=== PATIENT | male | born 1955 | race Caucasian/White ===

== ENCOUNTER 2017-03-07 09:57 | Outpatient (CLI) | payer OTHER ==
[2017-03-07 10:15] LABS: BASOPHILS # (AUTO) 0.1 10^3/uL (0.0-0.1); BASOPHILS % (AUTO) 0.5 %; EOSINOPHILS # (AUTO) 0.8 10^3/uL (0.0-0.7); EOSINOPHILS % (AUTO) 7.5 %; HCT - HEMATOCRIT 44.4 % (42.0-52.0); HGB - HEMOGLOBIN 14.9 g/dL (14.0-18.0); LYMPHOCYTES # (AUTO) 2.7 10^3/uL (1.5-3.5); LYMPHOCYTES % (AUTO) 25.8 %; MEAN CORPUSCULAR HEMOGLOBIN 30.3 pg (27.0-31.0); MEAN CORPUSCULAR HGB CONC 33.7 g/dL (32.0-36.0); MEAN PLATELET VOLUME 8.5 fL (7.4-11.4); MONOCYTES # (AUTO) 0.6 10^3/uL (0.0-1.0); MONOCYTES % (AUTO) 5.5 %; NEUTROPHILS # (AUTO) 6.3 10^3/uL (1.5-6.6); NEUTROPHILS % (AUTO) 60.7 %; RED BLOOD COUNT 4.93 10^6/uL (4.70-6.10); RED CELL DISTRIBUTION WIDTH 14.8 % (12.0-15.0); UNCORRECTED WHITE BLOOD COUNT 10.4 x10^3/uL; WHITE BLOOD COUNT 10.4 x10^3/uL (4.8-10.8)
== END 2017-03-07 09:58 | disposition home or self-care (01) ==
LOC: LAB 09:57
PROVIDERS: ATTEND Family Medicine
DX: M79.661 Pain in right lower leg (principal)
CPT/HCPCS: 36415; 85025; 85379

== ENCOUNTER 2017-03-11 19:12 | Outpatient (CLI) | payer OTHER ==
--- NOTE | 2017-03-12 09:05 | Ultrasound Report ---
EXAM: RIGHT LOWER EXTREMITY VENOUS ULTRASOUND EXAM DATE: 03/11/2017 08:29 PM. CLINICAL HISTORY: Duplex study arterial and venous extremities, unilateral. Right calf pain. COMPARISON: None. TECHNIQUE: Real-time sonographic vascular imaging was performed by the slot supervisor through the lower extremity utilizing both color-flow and Doppler spectral analysis. Multiple member service representative static aung ges were saved for review. FINDINGS: Common Femoral Vein (CFV): Normal. CFV-GSV Junction: Normal. Profunda Femoral Vein (PFV): Normal. Femoral Vein (FV) Prox: Normal. Femoral Vein (FV) Mid: Normal. Femoral Vein (FV) Dist: Normal. Popliteal Vein: Normal. Posterior Tibial Veins: Normal. Peroneal Veins: Normal. Contralateral Left CFV: Normal. Other: None. IMPRESSION: No evidence for deep venous thrombosis. [facility] Referring Provider Line: [phone] SITE ID: [id number]
--- NOTE | 2017-03-12 18:22 | Ultrasound Report ---
EXAM: RIGHT LOWER EXTREMITY ARTERIAL DOPPLER ULTRASOUND EXAM DATE: 03/11/2017 10:22 PM. CLINICAL HISTORY: Claudication type symptoms. Recent long flight. Calf pain. COMPARISON: None. TECHNIQUE: Real-time sonographic vascular imaging was performed by the theology teacher, utilizing color-f low, Doppler flow, and spectral analysis. Multiple outbound sales representative static images were saved for review . FINDINGS: Patchy areas of atheromatous plaques are noted in the arterial system of the right lower ex tremity. Biphasic or triphasic waveforms are noted. Specifically, no hemodynamically significant sten oses are noted. Spectral waveform analysis is as follows: Right Leg: VISUAL MERCHANDISER: PSV 99.7 cm/sec. Triphasic waveform. PSFA: PSV 75.4 cm/sec. Triphasic waveform. MSFA: PSV 93.4 cm/sec. Triphasic waveform. DSFA: PSV 101.3 cm/sec. Triphasic waveform. PFA: PSV 67.2 cm/sec. Biphasic waveform. POP: PSV 55 cm/sec. Triphasic waveform. VALENTE: PSV 34.7 cm/sec. Triphasic waveform. SUPERVISOR ASSEMBLY ROOM: PSV 90.1 cm/sec. Biphasic waveform. PER: PSV 37.6 cm/sec. Biphasic waveform. DPA: PSV 76.6 cm/sec. Biphasic waveform. IMPRESSION: 1. No hemodynamically significant stenoses. 2. See separate lower extremity venous ultrasound report. [facility] Referring Provider Line: [phone] SITE ID: [id number]
== END 2017-03-11 19:13 | disposition home or self-care (01) ==
LOC: DI 19:12
PROVIDERS: ATTEND Family Medicine
DX: M79.661 Pain in right lower leg (principal)

== ENCOUNTER 2017-07-22 08:00 | Outpatient (CLI) | payer OTHER | END 2017-07-22 08:01 | disposition home or self-care (01) | LOC: LAB.R 08:00 | PROVIDERS: ATTEND Physician Assistant Medical | DX: L03.211 Cellulitis of face (principal) | CPT/HCPCS: 87070; 87205 ==

== ENCOUNTER 2017-07-31 19:34 | Emergency (ER) | payer OTHER ==
--- NOTE | 2017-07-31 21:09 | ED Physician Documentation ---
PD HPI HEAD INJURY - Stated complaint Stated Complaint: HEAD LAC - Chief complaint Chief Complaint: Trauma Hd/Nk - History obtained from History obtained from: Patient - History of Present Illness Mechanism of head injury: Fell (he stumbled and fell backward, struck back of head. No LOC.) Timing - onset: Today Location of injury: Back Associated symptoms: No: LOC, AMS, Nausea / vomiting Contributing factors: No: Anticoagulated, Intoxicated Similar symptoms before: Has not had sx before Recently seen: Not recently seen Review of Systems Eyes: denies: Loss of vision, Decreased vision, Photophobia Nose: denies: Rhinorrhea / runny nose, Congestion Throat: denies: Sore throat Cardiac: denies: Chest pain / pressure GI: denies: Abdominal Pain Skin: reports: Laceration (s) (occiput) Musculoskeletal: denies: Neck pain, Back pain Neurologic: denies: Focal weakness, Numbness PD PAST MEDICAL HISTORY - Past Medical History Cardiovascular: Hypertension, High cholesterol, Angina Respiratory: None Endocrine/Autoimmune: Type 2 diabetes GI: Other : Benign prostate hypertrophy HEENT: Other Psych: Depression Musculoskeletal: Gout Derm: None - Past Surgical History Past Surgical History: Yes General: Colonoscopy Cardiovascular: Cardiac catheterization, Other HEENT: Other - Present Medications Home Medications: Ambulatory Orders Medication Instructions Recorded Confirmed Allopurinol 300 mg PO DAILY 05/28/14 11/14/15 Aspirin [Aspir 81] 81 mg PO DAILY 05/28/14 11/11/15 Atenolol 100 mg PO DAILY 05/28/14 11/14/15 Cholecalciferol (Vitamin D3) 5,000 unit PO DAILY 05/28/14 11/14/15 [Vitamin D3] Gummy Multivitamin 1 mg PO DAILY 05/28/14 11/11/15 Hydrochlorothiazide 25 mg PO DAILY 05/28/14 11/11/15 Inulin [Fiber Gummies] 2.5 gm PO DAILY 05/28/14 11/11/15 Losartan Potassium 50 mg PO DAILY 05/28/14 11/11/15 Marine D3 1 mg PO BID 05/28/14 11/11/15 Triamcinolone 0.1% Cream [Kenalog 15 gm TOP QID PRN 05/28/14 11/11/15 0.1% Cream] metFORMIN [Glucophage] 500 mg PO BIDWM 09/03/14 11/11/15 Fluoxetine HCl 20 mg PO DAILY 11/11/15 11/11/15 Tamsulosin [Flomax] 0.4 mg PO DAILY 11/14/15 11/14/15 - Allergies Allergies/Adverse Reactions: Allergies Allergy/AdvReac Type Severity Reaction Status Date / Time No Known Drug Allergies Allergy Verified 05/28/14 13:11 - Social History Does the pt smoke?: No Smoking Status: Never smoker Does the pt drink ETOH?: No Does the pt have substance abuse?: No PD ED PE NORMAL - Vitals Vital signs reviewed: Yes - General General: Alert and oriented X 3, No acute distress, Well developed/nourished - HEENT HEENT: Other (occiput with 2 cm lac with mild bleeding, to fatty tissue. Not deep but edges slightly apart. ) - Neck Neck: Supple, no meningeal sign, No bony TTP, No adenopathy - Derm Derm: Normal color, Warm and dry - Neuro Neuro: Alert and oriented X 3, financial cost analyst 2-12 intact, No motor deficit, No sensory deficit, Normal speech Eye Opening: Spontaneous Motor: Obeys Commands Verbal: Oriented GCS Score: 15 - Psych Psych: Normal mood Results - Vitals Vitals: Vital Signs - 24 hr 07/31/17 07/31/17 19:35 21:50 Temperature 36.0 C L Heart Rate 66 61 Respiratory 18 18 Rate Blood Pressure 123/76 122/81 H O2 Saturation 96 95 Oxygen O2 Source Room air Procedures - Laceration (location) occipital scalp Length in cm: 2 Wound type: Linear, Into subcut fat, Clean Anesthesia: Lidocaine 1% with epi Skin layer closure: Simpson Other: Patient tolerated well, No complications, Tetanus UTD Complexity: Simple PD MEDICAL DECISION MAKING - ED course Complexity details: considered differential, d/w patient Departure - Departure Disposition: 01 Home, Self Care Clinical Impression: Fall from slip, trip, or stumble Qualifiers: Encounter type: initial encounter Qualified Code(s): W01.0XXA - Fall on same level from slipping, tripping and stumbling without subsequent striking against object, initial encounter Occipital scalp laceration Qualifiers: Encounter type: initial encounter Qualified Code(s): S01.01XA - Laceration without foreign body of scalp, initial encounter Condition: Stable Record reviewed to determine appropriate education?: Yes Instructions: ED Laceration Scalp Stitch Or Stap Comments: Tylenol or ibuprofen if needed for pains. It is okay to wash and shower. Clean off the wound twice a day with soap and water, or peroxide and water. Apply some antibiotic ointment to it to keep it moist. Also to watch for signs of infection such as purulence, redness or increasing pain. Return to your primary care or the ER at the specified time for staple removal. Staple removal in 7- 10 days. It can be at your scheduled regular appointment coming up next week per Discharge Date/Time: 07/31/17 21:51
[2017-07-31 21:51] VITALS: BP 122/81
== END 2017-07-31 21:51 | disposition home or self-care (01) ==
LOC: ED 19:34
DX: S01.01XA Laceration without foreign body of scalp, initial encounter (principal); W01.190A Fall on same level from slipping, tripping and stumbling with subsequent striking against furniture, initial encounter; I10 Essential (primary) hypertension; E78.00 Pure hypercholesterolemia, unspecified; E11.9 Type 2 diabetes mellitus without complications; Z79.82 Long term (current) use of aspirin
CPT/HCPCS: 12001; 99283

== ENCOUNTER 2017-08-21 08:00 | Outpatient (CLI) | payer OTHER | END 2017-08-21 08:01 | disposition home or self-care (01) | LOC: LAB.R 08:00 | PROVIDERS: ATTEND Family Medicine | DX: Z22.322 Carrier or suspected carrier of Methicillin resistant Staphylococcus aureus (principal) | CPT/HCPCS: 87640 ==

== ENCOUNTER 2017-12-09 08:00 | Outpatient (CLI) | payer OTHER ==
[2017-12-09 13:17] LABS: ALBUMIN 4.4 g/dL (3.2-5.5); ALBUMIN/GLOBULIN RATIO 1.4 (1.0-2.2); ALKALINE PHOSPHATASE 53 IU/L (42-121); ALT ALANINE AMINOTRANSFERASE 45 IU/L (10-60); AST ASPARTATE AMINOTRANSFERASE 36 IU/L (10-42); BILIRUBIN,TOTAL 0.9 mg/dL (0.2-1.0); BUN - BLOOD UREA NITROGEN 35 mg/dL (6-20); CALCIUM 9.3 mg/dL (8.5-10.3); CARBON DIOXIDE - CO2 27 mmol/L (21-32); CHLORIDE 100 mmol/L (101-111); CHOL/HDL RATIO 7.4 (<5.0); CHOLESTEROL 229 mg/dL; GFR - MDRD 76 (>89); GLUCOSE 96 mg/dL (70-100); HDL CHOLESTEROL 31 mg/dL; LDL CHOLESTEROL,CALCULATED 156 mg/dL; SODIUM 137 mmol/L (135-145); TOTAL PROTEIN 7.5 g/dL (6.7-8.2); VLDL CHOLESTEROL 42 mg/dL
[2017-12-09 13:23] LABS: HB2 TOTAL 17.3 g/dL; HEMOGLOBIN A1C 0.73 g/dL
[2017-12-09 13:25] LABS: BASOPHILS % (AUTO) 0.6 %; EOSINOPHILS # (AUTO) 0.4 10^3/uL (0.0-0.7); EOSINOPHILS % (AUTO) 5.1 %; HGB - HEMOGLOBIN 15.5 g/dL (14.0-18.0); LYMPHOCYTES # (AUTO) 2.6 10^3/uL (1.5-3.5); LYMPHOCYTES % (AUTO) 32.7 %; MEAN CORPUSCULAR HEMOGLOBIN 30.7 pg (27.0-31.0); MEAN CORPUSCULAR HGB CONC 34.1 g/dL (32.0-36.0); MEAN CORPUSCULAR VOLUME 90.1 fL (80.0-94.0); MEAN PLATELET VOLUME 9.4 fL (7.4-11.4); MONOCYTES # (AUTO) 0.5 10^3/uL (0.0-1.0); MONOCYTES % (AUTO) 5.9 %; NEUTROPHILS # (AUTO) 4.4 10^3/uL (1.5-6.6); NEUTROPHILS % (AUTO) 55.7 %; PLT - PLATELET COUNT 193 10^3/uL (130-450); RED BLOOD COUNT 5.05 10^6/uL (4.70-6.10); RED CELL DISTRIBUTION WIDTH 14.2 % (12.0-15.0)
== END 2017-12-09 23:59 ==
LOC: LAB.WCP 08:00
PROVIDERS: ATTEND Family Medicine
DX: E11.9 Type 2 diabetes mellitus without complications (principal); N52.9 Male erectile dysfunction, unspecified
CPT/HCPCS: 36415; 80053; 80061; 83036; 83721; 84403; 85025

== ENCOUNTER 2018-09-30 15:32 | Outpatient (CLI) | payer OTHER ==
[2018-09-30] MEDS ORDERED: IOVERSOL 320 50 ML VIAL ONE (15:40)
[2018-09-30] MEDS ORDERED: IOVERSOL 320 100 ML VIAL IVP ONE ×2 (15:41→17:15)
[2018-09-30 16:22] LABS: BASOPHILS # (AUTO) 0.1 10^3/uL (0.0-0.1); BASOPHILS % (AUTO) 0.8 %; EOSINOPHILS # (AUTO) 0.4 10^3/uL (0.0-0.7); EOSINOPHILS % (AUTO) 3.4 %; HGB - HEMOGLOBIN 16.5 g/dL (14.0-18.0); LYMPHOCYTES # (AUTO) 3.2 10^3/uL (1.5-3.5); LYMPHOCYTES % (AUTO) 24.3 %; MEAN CORPUSCULAR HEMOGLOBIN 30.9 pg (27.0-31.0); MEAN CORPUSCULAR HGB CONC 33.8 g/dL (32.0-36.0); MEAN CORPUSCULAR VOLUME 91.5 fL (80.0-94.0); MEAN PLATELET VOLUME 8.6 fL (7.4-11.4); MONOCYTES # (AUTO) 0.9 10^3/uL (0.0-1.0); MONOCYTES % (AUTO) 6.8 %; NEUTROPHILS # (AUTO) 8.4 10^3/uL (1.5-6.6); NEUTROPHILS % (AUTO) 64.7 %; PLT - PLATELET COUNT 229 10^3/uL (130-450); RED BLOOD COUNT 5.33 10^6/uL (4.70-6.10); RED CELL DISTRIBUTION WIDTH 14.2 % (12.0-15.0)
[2018-09-30 16:35] LABS: ALBUMIN 4.5 g/dL (3.2-5.5); ALBUMIN/GLOBULIN RATIO 1.2 (1.0-2.2); BILIRUBIN,TOTAL 1.4 mg/dL (0.2-1.0); CALCIUM 9.6 mg/dL (8.5-10.3); CREATININE 1.1 mg/dL (0.6-1.2); TOTAL PROTEIN 8.4 g/dL (6.7-8.2)
[2018-09-30 16:41] LABS: HB2 TOTAL 18.7 g/dL; HEMOGLOBIN A1C 0.86 g/dL; HEMOGLOBIN A1C % 6.4 % (4.6-6.2)
[2018-09-30] MEDS ORDERED: IOVERSOL 320 50 ML VIAL PO ONE (17:15)
--- NOTE | 2018-09-30 19:25 | CT Report ---
Reason: ABDOMINAL PAIN, LLQ Procedure Date: 09/30/2018 Accession Number: [id number] / [id number] Procedure: CT - Abdomen/Pelvis W/ CPT Code: FULL RESULT: EXAM: CT ABDOMEN AND PELVIS EXAM DATE: 09/30/2018 05:13 PM. CLINICAL HISTORY: ABDOMINAL PAIN, LLQ. Left lower quadrant pain. COMPARISONS: ABDOMEN/PELVIS W/ 09/30/2018 5:02 PM ABDOMEN/PELVIS W/O 06/29/2015 8:37 AM. TECHNIQUE: Routine helical CT imaging was performed through the abdomen and pelvis. IV contrast: OPTI 320 90 ML. Enteric contrast: Yes. Reconstructions: Coronal and sagittal. In accordance with CT protocol optimization, one or more of the following dose reduction techniques were utilized for this exam: automated exposure control, adjustment of mA and/or KV based on patient size, or use of iterative reconstructive technique. FINDINGS: Lung bases: Minimal probable chronic consolidation of the lingula, unchanged. Liver: Fatty liver. Gallbladder: Small gallstones or sludge are possible. Bile ducts: Unremarkable. Pancreas: Unremarkable. Spleen: Low density mass seen at the spleen measuring 1.8 cm, appears unchanged from the prior, Hounsfield unit suggestive for a solid mass, could represent a splenic hemangioma, not fully characterized. Adrenals: Unremarkable. Kidneys: Large left lower pole renal calculus measuring 1.7 cm, increased. Small nonspecific low densities left kidney. A few small left lower pole renal cysts. Right lower pole renal cyst measuring 1.6 cm. A few right renal calculi, largest at the mid pole 4 mm. Small right upper pole renal cyst. A few other small probable renal cysts. No hydronephrosis. No ureteral calculi. Bowel: Small hiatal hernia. Moderate acute diverticulitis with an inflamed proximal sigmoid diverticulum and moderate adjacent stranding. Mild descending colon and proximal sigmoid colon diverticulosis. No evidence for perforation or abscess. Normal appendix. No free fluid or free air. Small fat-containing umbilical hernia again noted. Pelvis: The bladder and remaining pelvic organs appear unremarkable. Vasculature: No acute findings. Infrarenal abdominal aorta measures 2.5 cm. Bones: No acute findings. IMPRESSION: 1. Moderate acute diverticulitis with an inflamed proximal sigmoid diverticulum and moderate adjacent stranding. Mild descending colon and proximal sigmoid colon diverticulosis. No evidence for perforation or abscess. 2. Bilateral renal calculi, nonobstructing. See above. 3. Small fat-containing umbilical hernia again noted. 4. Low density mass seen at the spleen measuring 1.8 cm, appears unchanged from the prior, Hounsfield unit suggestive for a solid mass, could represent a splenic hemangioma, not fully characterized. 5. Small gallstones or sludge are possible. 6. Fatty liver. [facility] ADDENDUM: 09/30/18 20:29 Dr. Lantigua was informed of these findings on 09/30/2018 at 20:28 hrs.
== END 2018-09-30 15:33 | disposition home or self-care (01) ==
LOC: DI 15:32
PROVIDERS: ATTEND Family Medicine
DX: K57.32 Diverticulitis of large intestine without perforation or abscess without bleeding (principal); K57.30 Diverticulosis of large intestine without perforation or abscess without bleeding; N20.0 Calculus of kidney; K42.9 Umbilical hernia without obstruction or gangrene; R16.1 Splenomegaly, not elsewhere classified; K76.0 Fatty (change of) liver, not elsewhere classified; R10.32 Left lower quadrant pain; E11.9 Type 2 diabetes mellitus without complications
CPT/HCPCS: 36415; 74177; 80053; 83036; 85025; Q9967

== ENCOUNTER 2018-11-27 06:47 | Day surgery (SDC) | payer OTHER ==
[~2018-11-27 06:47] MED LIST: CYCLOPENTOLATE 1% OPHTH DROPS 2 ML ONE; KETOROLAC 0.45% OPHTH DROPS ONE; PHENYLEPHRINE 2.5% OPHTH 2 ML DROPS ONE; PROPARACAINE 0.5% OPHTH DROPS 15 ML ONE
[2018-11-27] MEDS ORDERED: BRIMONIDINE 0.2% OPHTH DROPS 5 ML ONE (06:59)
[2018-11-27] MEDS ORDERED: TIMOLOL 0.5% OPHTH DROPS ONE (06:59)
[2018-11-27] MEDS ORDERED: LACTATED RINGERS 500 ML IV ONE (06:59)
[2018-11-27] MEDS ORDERED: BSS/LIDOCAINE/EPINEPHRINE 1 ML SYRINGE ONE (06:59)
[2018-11-27] MEDS ORDERED: PROPARACAINE 0.5% OPHTH DROPS 15 ML LEFTEYE ONE ×2 (07:00→08:21)
[2018-11-27] MEDS ORDERED: VANCOMYCIN OPHTHALMI 8MG/0.8ML 8 MG/0.8 ML SYRINGE IO ONE (07:00)
[2018-11-27] MEDS ORDERED: CYCLOPENTOLATE 1% OPHTH DROPS 2 ML LEFTEYE ONE (07:00)
[2018-11-27] MEDS ORDERED: PHENYLEPHRINE 2.5% OPHTH 2 ML DROPS LEFTEYE ONE (07:00)
[2018-11-27] MEDS ORDERED: KETOROLAC 0.45% OPHTH DROPS LEFTEYE ONE (07:00)
--- NOTE | 2018-11-27 07:42 | ANESTHESIA ---
Pre-Anesthesia VS, & Labs - Diagnosis Left senile combined cataract - Procedure Left laser assisted phaco with IOL implant Vital Signs: Temp Pulse Resp BP Pulse Ox 36.3 C L 60 16 137/99 H 96 11/27/18 07:01 11/27/18 07:01 11/27/18 07:01 11/27/18 07:01 11/27/18 07:01 Height 5 ft 2 in Body Mass Index 34.7 - NPO >8 hours - Lab Results Current Lab Results: Laboratory Tests 11/27/18 07:10: POC Whole Bld Glucose 103 H Home Medications and Allergies Home Medications: Ambulatory Orders Ascorbic Acid [Vitamin C] 500 mg PO DAILY 11/27/18 Inulin/Cholecalciferol (D3) [Fiber Gummies-Vitamin D3] 1 each PO DAILY 11/27/18 Krill/Om-3/Dha/Epa/Phospho/Ast [Krill Oil 500 mg Softgel] 1 each PO DAILY 11/27/18 Allopurinol 300 mg PO DAILY 05/28/14 Aspirin [Aspir 81] 81 mg PO DAILY 05/28/14 Atenolol 100 mg PO DAILY 05/28/14 Cholecalciferol (Vitamin D3) [Vitamin D3] 5,000 unit PO DAILY 05/28/14 Gummy Multivitamin 1 mg PO DAILY 05/28/14 Hydrochlorothiazide 25 mg PO DAILY 05/28/14 Losartan Potassium 50 mg PO DAILY 05/28/14 Triamcinolone 0.1% Cream [Kenalog 0.1% Cream] 15 gm TOP QID PRN 05/28/14 metFORMIN [Glucophage] 500 mg PO BIDWM 09/03/14 Ascorbic Acid [Vitamin C] 500 mg PO DAILY 11/27/18 Inulin/Cholecalciferol (D3) [Fiber Gummies-Vitamin D3] 1 each PO DAILY 11/27/18 Krill/Om-3/Dha/Epa/Phospho/Ast [Krill Oil 500 mg Softgel] 1 each PO DAILY 11/27/18 Allergies/Adverse Reactions: Allergies Allergy/AdvReac Type Severity Reaction Status Date / Time oxycodone AdvReac Rash Verified 11/27/18 07:00 Anes History & Medical History - Anesthetic History Anesthesia Complications: reports: No previous complications Family history of Anesthesia Complications: Denies Family history of Malignant Hyperthermia: Denies - Medical History Cardiovascular: reports: Hypertension Pulmonary: reports: None Gastrointestinal: reports: Colon polyps, Diverticulitis Urinary: reports: Benign prostate hypertrophy, Kidney stones Neuro: reports: None Musculoskeletal: reports: None Endocrine/Autoimmune: reports: Type 2 diabetes Skin: reports: Psoriasis Smoking Status: Never smoker Psychosocial: reports: No issues indicated - Surgical History General: Colonoscopy Eyes Ears Nose Throat (EENT): Other Cardiothoracic: Cardiac catheterization, Other Urologic: Ureterolithotomy (stones) Exam General: Alert Dental: WNL Mouth Opening: Greater than 4 Fingerbreadths Neck Mobility: Normal Mallampati classification: II Thyromental Distance: greater than 6 cm Respiratory: Lungs clear Cardiovascular: Regular rate Neurological: Normal speech Mental/Cognitive Status: Alert/Oriented X3 Cognitive Status: Within normal limits Plan Anesthesia Type: MAC Consent for Procedure(s) Verified and Reviewed: Yes Code Status: Attempt Resuscitation ASA classification: 3-Severe systemic disease Is this case an emergency?: No
[2018-11-27] MEDS ORDERED: BRIMONIDINE 0.2% OPHTH DROPS 5 ML OPTH ONE ×2 (07:43→08:21)
[2018-11-27] MEDS ORDERED: CHONDR SULF/HYALURONATE SYRINGE IO ONE ×3 (07:44→08:21)
[2018-11-27] MEDS ORDERED: EPINEPHrine 1 MG/ML AMP IVP ONE ×2 (07:44→08:21)
[2018-11-27] MEDS ORDERED: TIMOLOL 0.5% OPHTH DROPS OPTH ONE ×2 (07:44→08:21)
[2018-11-27] MEDS ORDERED: BSS/LIDOCAINE/EPINEPHRINE 1 ML SYRINGE IO ONE ×2 (07:45→08:21)
[2018-11-27] MEDS: TRIAMCIN/MOXIFLOX OPHTHALMIC 0.6 ML VIAL IO ONE ×2 (07:47→08:21)
[2018-11-27] MEDS ORDERED: MIDAZOLAM 2 MG/2 ML VIAL IVP ONE (08:10)
[2018-11-27 09:04] VITALS: BP 148/75
--- NOTE | 2018-11-27 10:00 | OPERATIVE REPORT ---
DATE OF SERVICE: 11/27/2018 Physician: Edward Regan MD PREOPERATIVE DIAGNOSIS: Visually significant cataract, left eye. This was his first cataract surgery. POSTOPERATIVE DIAGNOSIS: Visually significant cataract, left eye. This was his first cataract surgery. NAME OF PROCEDURE: Phacoemulsification with posterior chamber intraocular lens implant, left eye, with laser assist. SURGEON: Edward Regan MD ANESTHESIA: Monitored anesthesia care. COMPLICATIONS: None. OPERATIVE INDICATIONS: This is a 63-year-old man with progressive vision loss in the left eye due to 1-2+ nuclear sclerotic, 2-3+ cortical, and 2+ posterior subcapsular cataract. Best corrected visual acuity was 20/40 with glare to 20/200 in the left eye. Indications for surgery were overall decrease in vision, difficulty seeing words on a computer screen, difficulty reading, difficulty seeing words closed caption or game scores on TV, difficulty seeing street signs and difficulty with glare or bright lights in any situation. He was consented at length concerning risks and benefits of cataract surgery, after which he expressed a desire to proceed with surgery. OPERATIVE PROCEDURE: The patient was taken to OR #3 and placed under monitored anesthesia care. Surgical timeout was conducted confirming correct patient, correct procedure, and correct surgical site. He was placed on the LenSx laser and his eye docked to laser interface. It was noted during this time that he has a very thin crystalline lens. The laser performed the capsulotomy, lens softening, phaco wounds, and arcuate keratotomy incisions. He was then moved to the operating microscope, given topical anesthesia, and prepped and draped in the usual sterile fashion. The eye was entered at the 6 and 3 o'clock positions. Intracameral Shugarcaine was injected into the anterior chamber, followed by Viscoat. A capsulorrhexis flap created by the LenSx laser was removed from the anterior chamber. The nucleus was hydrodissected and phacoemulsified. However, at the end of the phacoemulsification, there was noted to be a rent nasally of the posterior capsule. However, residual cortex was all under the wound and cortex was evacuated using automated infusion and aspiration. Provisc was injected into the sulcus and a 21.0 diopter, 3-piece, intraocular lens was injected into the sulcus and put into optic capture; however, the optic would not remain in optic capture, so it was just left. It was very well centered and left strictly in the sulcus. I and A was used to evacuate the viscoelastic materials and the eye was inflated to physiologic pressure using balanced salt solution and found to be watertight. Approximately 0.1 mL of a mixture of triamcinolone, moxifloxacin and vancomycin was injected subconjunctivally in the superior quadrant for infection and inflammation prophylaxis. The patient was taken from the operating room in good condition and given postop instructions. TD: 11/27/2018 09:11 ALEX
== END 2018-11-27 06:48 | disposition home or self-care (01) ==
LOC: SDS 06:47
PROVIDERS: ATTEND Ophthalmology
PROC: 08RK3JZ Replacement of Left Lens with Synthetic Substitute, Percutaneous Approach (ICD-10-PCS; principal; 2018-11-27 08:00)
DX: E11.36 Type 2 diabetes mellitus with diabetic cataract (principal); H25.812 Combined forms of age-related cataract, left eye; I10 Essential (primary) hypertension; Z79.84 Long term (current) use of oral hypoglycemic drugs; Z87.442 Personal history of urinary calculi; Z90.79 Acquired absence of other genital organ(s); L40.9 Psoriasis, unspecified
CPT/HCPCS: 66984; A9270; J3490; V2632

== ENCOUNTER 2018-12-11 10:51 | Day surgery (SDC) | payer OTHER ==
[~2018-12-11 10:51] MED LIST changes: -CYCLOPENTOLATE 1% OPHTH DROPS 2 ML ONE; -PHENYLEPHRINE 2.5% OPHTH 2 ML DROPS ONE
[2018-12-11] MEDS ORDERED: MIDAZOLAM 2 MG/2 ML VIAL IVP ONE (10:52)
[2018-12-11] MEDS ORDERED: fentaNYL 100 MCG/2 ML VIAL IVP ONE (10:52)
[2018-12-11] MEDS ORDERED: LACTATED RINGERS 500 ML IV ONE (10:58)
--- NOTE | 2018-12-11 11:26 | ANESTHESIA ---
Pre-Anesthesia VS, & Labs - Diagnosis Left subluxed intraocular lens - Procedure Reposition left intraocular lens Vital Signs: Temp Pulse Resp BP Pulse Ox 36.1 C L 57 L 16 152/95 H 99 12/11/18 11:01 12/11/18 11:01 12/11/18 11:01 12/11/18 11:01 12/11/18 11:01 Height 5 ft 2 in Weight (kg) 87 kg Body Mass Index 34.7 - NPO >8 hours, Other (Water at 0745) - Lab Results Current Lab Results: Laboratory Tests 12/11/18 11:14: POC Whole Bld Glucose 127 H Home Medications and Allergies Allopurinol 300 mg PO DAILY 05/28/14 Aspirin [Aspir 81] 81 mg PO DAILY 05/28/14 Atenolol 100 mg PO DAILY 05/28/14 Cholecalciferol (Vitamin D3) [Vitamin D3] 5,000 unit PO DAILY 05/28/14 Losartan Potassium 50 mg PO DAILY 05/28/14 Triamcinolone 0.1% Cream [Kenalog 0.1% Cream] 15 gm TOP QID PRN 05/28/14 Ascorbic Acid [Vitamin C] 500 mg PO DAILY 11/27/18 Krill/Om-3/Dha/Epa/Phospho/Ast [Krill Oil 500 mg Softgel] 1 each PO DAILY 11/27/18 Allergies/Adverse Reactions: Allergies Allergy/AdvReac Type Severity Reaction Status Date / Time oxycodone AdvReac Rash Verified 11/27/18 07:00 Anes History & Medical History - Anesthetic History Anesthesia Complications: reports: No previous complications Family history of Anesthesia Complications: Denies Family history of Malignant Hyperthermia: Denies - Medical History Cardiovascular: reports: Hypertension Pulmonary: reports: None Gastrointestinal: reports: Colon polyps, Diverticulitis Urinary: reports: Benign prostate hypertrophy, Kidney stones Neuro: reports: None Musculoskeletal: reports: None Endocrine/Autoimmune: reports: Type 2 diabetes Blood Disorders: reports: None Skin: reports: Psoriasis Smoking Status: Never smoker Psychosocial: reports: No issues indicated - Surgical History General: Colonoscopy Eyes Ears Nose Throat (EENT): Other Cardiothoracic: Cardiac catheterization, Other Urologic: Ureterolithotomy (stones) Exam General: Alert, Oriented x3, Cooperative Dental: WNL Mouth Opening: Greater than 4 Fingerbreadths Neck Mobility: Normal Mallampati classification: II Thyromental Distance: greater than 6 cm Respiratory: Lungs clear Cardiovascular: Regular rate Neurological: Normal speech Mental/Cognitive Status: Alert/Oriented X3, Normal for patient Cognitive Status: Within normal limits Plan Anesthesia Type: MAC Consent for Procedure(s) Verified and Reviewed: Yes Code Status: Attempt Resuscitation ASA classification: 2-Mild systemic disease Is this case an emergency?: No
[2018-12-11] MEDS ORDERED: CHONDR SULF/HYALURONATE SYRINGE IO ONE (12:12)
[2018-12-11] MEDS ORDERED: CARBACHOL 0.01% 1.5 ML VIAL IO ONE ×3 (12:12→12:23)
[2018-12-11] MEDS ORDERED: TIMOLOL 0.5% OPHTH DROPS OPTH ONE (12:12)
[2018-12-11] MEDS ORDERED: BSS/LIDOCAINE/EPINEPHRINE 1 ML SYRINGE IO ONE ×2 (12:12)
[2018-12-11] MEDS ORDERED: EPINEPHrine 1 MG/ML AMP IVP ONE (12:12)
[2018-12-11] MEDS ORDERED: VANCOMYCIN OPHTHALMI 8MG/0.8ML 8 MG/0.8 ML SYRINGE IO ONE ×2 (12:12)
[2018-12-11] MEDS ORDERED: BRIMONIDINE 0.2% OPHTH DROPS 5 ML OPTH ONE (12:12)
[2018-12-11] MEDS ORDERED: TRIAMCIN/MOXIFLOX OPHTHALMIC 0.6 ML VIAL IO ONE ×2 (12:12)
[2018-12-11 12:52] VITALS: BP 164/99
--- NOTE | 2018-12-11 12:58 | OPERATIVE REPORT ---
DATE OF SERVICE: 12/11/2018 Physician: Edward Regan MD PREOPERATIVE DIAGNOSIS: Subluxed intraocular lens, left eye. Cataract surgery was performed on 11/27/2018 and sulcus fixated 3-piece intraocular lens was placed at that time. On postop day #1, the intraocular lens was well positioned behind the iris. At the 1-week postop visit the intraocular lens was 3/[address] prolapsed into the anterior chamber, subluxed through the pupil with the nasal haptic in the angle. POSTOPERATIVE DIAGNOSIS: Subluxed intraocular lens, left eye. Cataract surgery was performed on 11/27/2018 and sulcus fixated 3-piece intraocular lens was placed at that time. On postop day #1, the intraocular lens was well positioned behind the iris. At the 1-week postop visit the intraocular lens was 3/[address] prolapsed into the anterior chamber, subluxed through the pupil with the nasal haptic in the angle. PROCEDURE: Repositioning of subluxed posterior chamber intraocular lens, left eye. SURGEON: Edward Regan MD ANESTHESIA: Monitored anesthesia care. COMPLICATIONS: None. OPERATIVE INDICATIONS: This is a 63-year-old man who, as above, underwent cataract surgery on 11/27/2018 and had a subluxed intraocular lens of that eye noted a little over a week later on 12/05/2018. Indications for surgery were as above, a poorly positioned intraocular lens. He was consented at length concerning the risks and benefits of IOL repositioning, the potential for loss of the lens posteriorly, and/or exchange of the lens for either another posterior chamber IOL (potentially sututred to the iris), or even an anterior chamber intraocular lens. He expressed understanding and a desire to proceed with surgery. OPERATIVE PROCEDURE: The patient was taken into OR #3 and placed under monitored anesthesia care. A surgical timeout was conducted confirming the correct patient, correct procedure, and correct surgical site. He was given topical anesthesia and then prepped and draped in the usual sterile fashion. The eye was entered through the original wounds at the 6 and 3-o'clock positions. Intracameral Shugarcaine was injected into the anterior chamber, followed by Viscoat. Through the main wound, the IOL was manipulated with a Kuglen hook, rotated, and the subluxed haptic, that was underneath the wound, was rotated to beneath the pupil - the IOL was once again well positioned. There was an obvious small rent in the posterior capsule that was unchanged and there was no vitreous coming through the rent or into the anterior chamber. Once this was accomplished, for security, a 10-0 nylon suture was placed across the wound and Miochol was injected into the eye to keep the pupil down miotic. The viscoelastic materials were then removed from the anterior chamber using infusion and aspiration. The eye was inflated to physiologic pressure using balanced salt solution and found to be watertight. Approximately 0.8 mL mixture of triamcinolone, moxifloxacin, and vancomycin was injected subconjunctivally in the superior quadrant for infection and inflammation prophylaxis. The patient was taken from the operating room in good condition and given postoperative instructions. TD: 12/11/2018 12:46 MTDD
== END 2018-12-11 10:52 | disposition home or self-care (01) ==
LOC: SDS 10:51
PROVIDERS: ATTEND Ophthalmology
PROC: 08SK3ZZ Reposition Left Lens, Percutaneous Approach (ICD-10-PCS; principal; 2018-12-11 12:00)
DX: T85.22XA Displacement of intraocular lens, initial encounter (principal); Y77.2 Prosthetic and other implants, materials and accessory ophthalmic devices associated with adverse incidents; Y83.6 Removal of other organ (partial) (total) as the cause of abnormal reaction of the patient, or of later complication, without mention of misadventure at the time of the procedure; I10 Essential (primary) hypertension; E11.9 Type 2 diabetes mellitus without complications
CPT/HCPCS: 66825; A9270; J3490

== ENCOUNTER 2020-03-30 07:24 | Outpatient (CLI) | payer BC ==
[2020-03-30 12:20] LABS: CHOL/HDL RATIO 5.7 (<5.0); CHOLESTEROL 198 mg/dL; HDL CHOLESTEROL 35 mg/dL; LDL CHOLESTEROL,CALCULATED 122 mg/dL; LDL/HDL RATIO 3.5 (<3.6); VLDL CHOLESTEROL 41 mg/dL
[2020-03-30 20:06] LABS: HB2 TOTAL 15.6 g/dL; HEMOGLOBIN A1C 1.21 g/dL; HEMOGLOBIN A1C % 9.2 % (4.6-6.2)
== END 2020-03-30 23:59 | disposition home or self-care (01) ==
LOC: LAB.WCP 07:24
PROVIDERS: ATTEND Family Medicine
DX: E11.9 Type 2 diabetes mellitus without complications (principal); E78.5 Hyperlipidemia, unspecified
CPT/HCPCS: 36415; 80061; 83036; 83721

== ENCOUNTER 2020-05-17 05:23 | Emergency (ER) | payer BC ==
--- NOTE | 2020-05-17 06:19 | ED Physician Documentation ---
History of Present Illness - Stated complaint Stated Complaint: AB/BACK PX - History obtained from History obtained from: Patient - Additonal information Additional information: Patient is a 65-year-old male presents with a history of Kidney stones. He presents today with left flank pain and difficulty urinating and nausea and vomiting. Denies any history of abdominal aortic aneurysm or dissection. Denies any fevers or recent illnesses. Review of Systems Constitutional: reports: Reviewed and negative Eyes: reports: Reviewed and negative Ears: reports: Reviewed and negative Nose: reports: Reviewed and negative Throat: reports: Reviewed and negative Cardiac: reports: Reviewed and negative Respiratory: reports: Reviewed and negative GI: reports: Reviewed and negative : reports: Hesitancy, Other (Left flank pain) Skin: reports: Reviewed and negative Musculoskeletal: reports: Reviewed and negative Neurologic: reports: Reviewed and negative Psychiatric: reports: Reviewed and negative Endocrine: reports: Reviewed and negative Immunocompromised: reports: Reviewed and negative PD PAST MEDICAL HISTORY - Past Medical History Cardiovascular: Hypertension Respiratory: None Neuro: None Endocrine/Autoimmune: Type 2 diabetes GI: Colon polyps, Diverticulitis : Benign prostate hypertrophy, Kidney stones HEENT: Chronic vision loss, Dental implants Psych: None Musculoskeletal: None Derm: Psoriasis - Past Surgical History Past Surgical History: Yes General: Colonoscopy Cardiovascular: Cardiac catheterization, Other HEENT: Other - Present Medications Home Medications: Ambulatory Orders Medication Instructions Recorded Confirmed Aspirin [Aspir 81] 81 mg PO DAILY 05/28/14 05/17/20 Cholecalciferol (Vitamin D3) 5,000 unit PO DAILY 05/28/14 05/17/20 [Vitamin D3] Losartan Potassium 50 mg PO DAILY 05/28/14 05/17/20 Triamcinolone 0.1% Cream [Kenalog 15 gm TOP QID PRN 05/28/14 05/17/20 0.1% Cream] allopurinoL [Allopurinol] 300 mg PO DAILY 05/28/14 05/17/20 atenoloL [Atenolol] 100 mg PO DAILY 05/28/14 05/17/20 Ascorbic Acid [Vitamin C] 500 mg PO DAILY 11/27/18 05/17/20 Krill/Om-3/Dha/Epa/Phospho/Ast 1 each PO DAILY 11/27/18 05/17/20 [Krill Oil 500 mg Softgel] Hydrocodone/Acetaminophen [Warren 1 each PO Q6HR PRN #10 tablet 05/17/20 5-325 Tablet] Ondansetron Odt [Zofran Odt] 4 mg TL Q6H PRN #10 tablet 05/17/20 - Allergies Allergies/Adverse Reactions: Allergies Allergy/AdvReac Type Severity Reaction Status Date / Time oxycodone AdvReac Rash Verified 05/17/20 06:25 - Social History Does the pt smoke?: No Smoking Status: Never smoker Does the pt drink ETOH?: No Does the pt have substance abuse?: No - Immunizations Immunizations are current?: Yes - POLST Patient has POLST: No PD ED PE NORMAL - Vitals Vital signs reviewed: Yes - General General: No acute distress, Other (Uncomfortable, dry heaving, Unable to sit still) - HEENT HEENT: Atraumatic, PERRL - Neck Neck: Supple, no meningeal sign, No JVD - Cardiac Cardiac: RRR, No murmur, Strong equal pulses - Respiratory Respiratory: No respiratory distress, Clear bilaterally - Abdomen Abdomen: Normal bowel sounds, Soft, Non tender, Non distended, No organomegaly, Other (No midline abdominal pulsatile mass, positive for left-sided CVA tenderness) - Male Male : Deferred - Rectal Rectal: Deferred - Back Back: No spinal TTP, Other (Positive for left-sided CVA tenderness) - Derm Derm: Normal color, Warm and dry, No rash - Extremities Extremities: No deformity, No tenderness to palpate, Normal ROM s pain, No edema, No calf tenderness / cord - Neuro Neuro: Alert and oriented X 3, 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, No motor deficit, No sensory deficit, Normal speech - Psych Psych: Normal mood, Normal affect Results - Vitals Vitals: Vital Signs - 24 hr 05/17/20 05/17/20 06:00 06:55 Temperature 36.4 C L Heart Rate 44 L 49 L Respiratory 16 18 Rate Blood Pressure 143/84 H O2 Saturation 100 98 Oxygen O2 Source Room air - Labs Labs: Laboratory Tests 05/17/20 05/17/20 05/17/20 06:24 06:24 06:24 WBC 11.0 H RBC 5.17 Hgb 15.4 Hct 46.7 MCV 90.3 MCH 29.8 MCHC 33.0 RDW 13.0 Plt Count 267 MPV 10.3 Neut # (Auto) 7.1 H Lymph # (Auto) 2.9 Greenlee # (Auto) 0.7 Eos # (Auto) 0.3 Baso # (Auto) 0.1 Absolute Nucleated RBC 0.00 Nucleated RBC % 0.0 PT 13.8 H INR 1.3 H APTT 32.7 Lactic Acid Total Creatine Kinase 86 05/17/20 06:38 WBC RBC Hgb Hct MCV MCH MCHC RDW Plt Count MPV Neut # (Auto) Lymph # (Auto) Greenlee # (Auto) Eos # (Auto) Baso # (Auto) Absolute Nucleated RBC Nucleated RBC % PT INR APTT Lactic Acid 1.8 Total Creatine Kinase PD MEDICAL DECISION MAKING - ED course Complexity details: reviewed results, re-evaluated patient, considered differential, d/w patient, d/w family ED course: Patient is a 65-year-old male presents with a history of kidney stones presents today with nausea vomiting left-sided flank pain and urinary frequency and hesitancy. History and exam are consistent with likely ureterolithiasis CT scan ordered as well as IV fluids and basic lab work and urinalysis. He is afebrile we will not initiate antibiotics at this time. CT Scan shows left 4 mm UVJ stone. Departure - Departure Disposition: 01 Home, Self Care Clinical Impression: Kidney stones Condition: Stable Instructions: ED Stone Renal W Colic Follow-Up: Cherry Mason MD [Physician No Access] - Tomorrow Matt Lantigua DO [Primary Care Provider] - Tomorrow Prescriptions: Hydrocodone/Acetaminophen [Warren 5-325 Tablet] 1 each PO Q6HR PRN #10 tablet PRN Reason: Pain Ondansetron Odt [Zofran Odt] 4 mg TL Q6H PRN #10 tablet PRN Reason: Nausea / Vomiting Comments: folllow up with urology and your pcp this week. return to the ed with any concerns.
[2020-05-17] MEDS ORDERED: KETOROLAC 30 MG/ML VIAL IVP STA (06:21)
[2020-05-17] MEDS ORDERED: HYDROmorphone 0.5 MG/0.5 ML SYRINGE IVP STA (06:21)
[2020-05-17] MEDS ORDERED: ONDANSETRON 4 MG/2 ML VIAL IVP STA (06:21)
[2020-05-17] MEDS ORDERED: SODIUM CHLORIDE 0.9% 1,000 ML IV STA (06:21)
[2020-05-17 06:31] LABS: BASOPHILS # (AUTO) 0.1 10^3/uL (0.0-0.1); BASOPHILS % (AUTO) 0.6 %; EOSINOPHILS # (AUTO) 0.3 10^3/uL (0.0-0.7); EOSINOPHILS % (AUTO) 2.4 %; HGB - HEMOGLOBIN 15.4 g/dL (14.0-18.0); LYMPHOCYTES # (AUTO) 2.9 10^3/uL (1.5-3.5); LYMPHOCYTES % (AUTO) 26.5 %; MEAN CORPUSCULAR HEMOGLOBIN 29.8 pg (27.0-31.0); MEAN CORPUSCULAR VOLUME 90.3 fL (80.0-94.0); MEAN PLATELET VOLUME 10.3 fL (7.4-11.4); MONOCYTES # (AUTO) 0.7 10^3/uL (0.0-1.0); NEUTROPHILS # (AUTO) 7.1 10^3/uL (1.5-6.6); PLT - PLATELET COUNT 267 10^3/uL (130-450); RED BLOOD COUNT 5.17 10^6/uL (4.70-6.10)
[2020-05-17 06:37] LABS: INR 1.3 (0.8-1.2); PT - PROTHROMBIN TIME 13.8 secs (9.9-12.6)
[2020-05-17 06:44] LABS: PARTIAL THROMBOPLASTIN TIME 32.7 secs (24.9-33.3)
[2020-05-17 07:32] LABS: BILIRUBIN,URINE NEGATIVE (NEGATIVE); GLUCOSE, URINE (UA) NEGATIVE (NEGATIVE); KETONES,URINE (UA) 15 mg/dL (NEGATIVE); LEUKOCYTE ESTERASE, URINE NEGATIVE (NEGATIVE); NITRITE,URINE NEGATIVE (NEGATIVE); OCCULT BLOOD,URINE LARGE (NEGATIVE); PH,URINE 5.5 PH (5.0-7.5); PROTEIN,URINE TRACE mg/dL (NEGATIVE); UROBILINOGEN,URINE 0.2 (NORMAL) E.U./dL (NORMAL)
[2020-05-17 07:35] VITALS: BP 127/65
[2020-05-17 07:36] LABS: CLARITY,URINE CLEAR (CLEAR)
[2020-05-17 07:41] LABS: BACTERIA,URINE Few /HPF (None Seen); RBC,URINE TNTC /HPF (0-5); SQUAMOUS EPITHELIAL CELL,UR FEW Squamous (<= Few)
--- NOTE | 2020-05-17 08:11 | CT Report ---
PROCEDURE: Abdomen/Pelvis WO INDICATIONS: LEFT flank pain TECHNIQUE: Noncontrast 5 mm thick sections acquired from the diaphragms to the symphysis. 5 mm coronal and sagi ttal reformats were then performed. For radiation dose reduction, the following was used: automated exposure control, adjustment of mA and/or kV according to patient size. COMPARISON: 09/30/2018 CT. FINDINGS: Image quality: Excellent. ABDOMEN: Lung bases: Lung bases are clear. Heart size is normal. Urinary tract: There are multiple bilateral nonobstructing renal calculi. The largest calculus measur es approximately 1.1 cm and the left lower pole. None of the calculi have significantly changed when compared with the prior study. There are no findings of hydronephrosis. There is also an approximatel y 4 mm calculus at the left UVJ (series 3 image 71). This produces mild hydroureter on the left. The right ureter is decompressed. Remaining solid organs: The unenhanced liver, spleen, pancreas, and adrenal glands are normal in appe arance. Small amount of hyperdense sludge versus tiny stones layering dependently in the gallbladder. No CT findings of cholecystitis. Peritoneum and bowel: Unenhanced bowel loops demonstrate normal wall thickness and caliber. No free fluid or air. Nodes and vessels: No retroperitoneal or mesenteric adenopathy by size criteria. Aorta and inferior vena cava are normal in caliber. Miscellaneous: No ventral hernias. PELVIS: Genitourinary: Bladder wall thickness is normal. Miscellaneous: No inguinal hernias or adenopathy. Bones: No suspicious bony lesions. No vertebral body compression fractures. IMPRESSION: Obstructing 4 mm left UVJ calculus producing mild hydroureter. Numerous additional nonobstructing bilateral renal calculi. Reviewed by: Helder Hernandez MD on 05/17/2020 8:10 AM PDT Approved by: Helder Hernandez MD on 05/17/2020 8:10 AM PDT Station ID: [id number]
== END 2020-05-17 07:44 | disposition home or self-care (01) ==
LOC: ED 05:23
DX: N20.0 Calculus of kidney (principal); E11.9 Type 2 diabetes mellitus without complications; Z79.82 Long term (current) use of aspirin
CPT/HCPCS: 36415; 74176; 81001; 82550; 83605; 85025; 85610; 85730; 87086; 99283; 99284

== ENCOUNTER 2020-06-13 09:57 | Outpatient (CLI) | payer BC ==
[2020-06-13 12:42] LABS: ALBUMIN 4.3 g/dL (3.2-5.5); ALBUMIN/GLOBULIN RATIO 1.3 (1.0-2.2); ALKALINE PHOSPHATASE 63 IU/L (42-121); ALT ALANINE AMINOTRANSFERASE 46 IU/L (10-60); AST ASPARTATE AMINOTRANSFERASE 33 IU/L (10-42); BUN - BLOOD UREA NITROGEN 24 mg/dL (6-20); CALCIUM 9.3 mg/dL (8.5-10.3); CARBON DIOXIDE - CO2 28 mmol/L (21-32); CHLORIDE 101 mmol/L (101-111); CHOL/HDL RATIO 3.9 (<5.0); CHOLESTEROL 126 mg/dL; GLUCOSE 156 mg/dL (70-100); HDL CHOLESTEROL 32 mg/dL; LDL CHOLESTEROL,CALCULATED 66 mg/dL; LDL/HDL RATIO 2.1 (<3.6); SODIUM 138 mmol/L (135-145); TOTAL PROTEIN 7.6 g/dL (6.7-8.2); VLDL CHOLESTEROL 28 mg/dL
[2020-06-13 13:27] LABS: HEMOGLOBIN A1c% 6.9 % (4.27-6.07)
== END 2020-06-13 23:59 | disposition home or self-care (01) ==
LOC: LAB.WCP 09:57
PROVIDERS: ATTEND Family Medicine
DX: E11.9 Type 2 diabetes mellitus without complications (principal)
CPT/HCPCS: 36415; 80053; 80061; 83036; 83721

== ENCOUNTER 2020-09-12 09:28 | Outpatient (CLI) | payer BC ==
[2020-09-12 12:42] LABS: BASOPHILS # (AUTO) 0.1 10^3/uL (0.0-0.1); BASOPHILS % (AUTO) 0.8 %; EOSINOPHILS # (AUTO) 0.4 10^3/uL (0.0-0.7); EOSINOPHILS % (AUTO) 4.3 %; HGB - HEMOGLOBIN 15.3 g/dL (14.0-18.0); LYMPHOCYTES # (AUTO) 2.6 10^3/uL (1.5-3.5); LYMPHOCYTES % (AUTO) 30.5 %; MEAN CORPUSCULAR HEMOGLOBIN 30.2 pg (27.0-31.0); MEAN CORPUSCULAR HGB CONC 33.6 g/dL (32.0-36.0); MEAN CORPUSCULAR VOLUME 89.9 fL (80.0-94.0); MEAN PLATELET VOLUME 10.6 fL (7.4-11.4); MONOCYTES # (AUTO) 0.6 10^3/uL (0.0-1.0); MONOCYTES % (AUTO) 7.3 %; NEUTROPHILS # (AUTO) 4.9 10^3/uL (1.5-6.6); NEUTROPHILS % (AUTO) 56.7 %; PLT - PLATELET COUNT 208 10^3/uL (130-450); RED BLOOD COUNT 5.07 10^6/uL (4.70-6.10); RED CELL DISTRIBUTION WIDTH 13.6 % (12.0-15.0); WHITE BLOOD COUNT 8.6 x10^3/uL (4.8-10.8)
[2020-09-12 13:04] LABS: ALBUMIN 4.3 g/dL (3.2-5.5); ALBUMIN/GLOBULIN RATIO 1.3 (1.0-2.2); ALKALINE PHOSPHATASE 64 IU/L (42-121); ALT ALANINE AMINOTRANSFERASE 44 IU/L (10-60); AST ASPARTATE AMINOTRANSFERASE 33 IU/L (10-42); BILIRUBIN,TOTAL 0.9 mg/dL (0.2-1.0); BUN - BLOOD UREA NITROGEN 32 mg/dL (6-20); CALCIUM 9.1 mg/dL (8.5-10.3); CARBON DIOXIDE - CO2 27 mmol/L (21-32); CHLORIDE 103 mmol/L (101-111); CHOL/HDL RATIO 3.8 (<5.0); CHOLESTEROL 111 mg/dL; CREATININE 1.1 mg/dL (0.6-1.2); GLUCOSE 158 mg/dL (70-100); HDL CHOLESTEROL 29 mg/dL; LDL CHOLESTEROL,CALCULATED 48 mg/dL; LDL/HDL RATIO 1.7 (<3.6); TOTAL PROTEIN 7.6 g/dL (6.7-8.2); VLDL CHOLESTEROL 34 mg/dL
[2020-09-12 13:36] LABS: CREATININE,URINE 112.3 mg/dL; MICROALBUM/CREATININE RATIO,UR 12.5 ug/mg (<30.0); MICROALBUMIN,URINE 1.4 mg/dL (0-300.0)
[2020-09-12 13:59] LABS: HEMOGLOBIN A1c% 9.1 % (4.27-6.07)
== END 2020-09-12 23:59 | disposition home or self-care (01) ==
LOC: LAB.WCP 09:28
PROVIDERS: ATTEND Family Medicine
DX: E11.9 Type 2 diabetes mellitus without complications (principal)
CPT/HCPCS: 36415; 80053; 80061; 82043; 82570; 83036; 83721; 85025

== ENCOUNTER 2020-12-09 07:35 | Day surgery (SDC) | payer BC ==
[2020-12-09] MEDS ORDERED: LACTATED RINGERS 1,000 ML IV ONE ×2 (07:38→09:40)
[2020-12-09] MEDS ORDERED: MIDAZOLAM 2 MG/2 ML VIAL ONE (08:06)
[2020-12-09] MEDS ORDERED: fentaNYL 250 MCG/5 ML VIAL ONE (08:07)
[2020-12-09 10:14] VITALS: BP 123/76
== END 2020-12-09 07:36 | disposition home or self-care (01) ==
LOC: SDS 07:35
PROVIDERS: ATTEND Surgery
PROC: 0DBH8ZZ Excision of Cecum, Via Natural or Artificial Opening Endoscopic (ICD-10-PCS; principal; 2020-12-09 08:30)
DX: Z12.11 Encounter for screening for malignant neoplasm of colon (principal); D12.0 Benign neoplasm of cecum; K57.30 Diverticulosis of large intestine without perforation or abscess without bleeding; Z80.0 Family history of malignant neoplasm of digestive organs; E11.9 Type 2 diabetes mellitus without complications; I10 Essential (primary) hypertension; I20.9 Angina pectoris, unspecified; E78.5 Hyperlipidemia, unspecified; K76.0 Fatty (change of) liver, not elsewhere classified; N40.0 Benign prostatic hyperplasia without lower urinary tract symptoms; E66.9 Obesity, unspecified; M10.9 Gout, unspecified; Z79.84 Long term (current) use of oral hypoglycemic drugs; Z79.82 Long term (current) use of aspirin; Z79.899 Other long term (current) drug therapy; Z68.34 Body mass index [BMI] 34.0-34.9, adult
CPT/HCPCS: 45385; J3010; J7120